=== PATIENT | female | born 2005 | race Caucasian/White ===

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

== ENCOUNTER 2023-03-13 12:54 | Outpatient (REF) | payer MEDICAID, SELFPAY ==
[2023-03-13 19:21] LABS: ALT 9 U/L (14-59); AST 13 U/L (15-37); Alkaline Phosphatase 48 U/L (46-116); Anion Gap 5.9 mmol/L (3-11); BUN 5 mg/dL (7-18); Bilirubin, Total 0.5 mg/dL (0.2-1.0); CO2 28.1 mmol/L (21.0-32.0); CREATININE 0.8 mg/dL (0.55-1.02); Calcium 9.4 mg/dL (8.5-10.1); Chloride 104 mmol/L (98-107); Estimated GFR 108.78 (mL/min/1.73m2); Glucose 99 mg/dL (74-106); Potassium 4.7 mmol/L (3.5-5.1); Sodium 138 mmol/L (136-145); Total Protein 7.4 g/dL (6.4-8.2)
== END 2023-03-13 12:55 | disposition home or self-care (01) ==
LOC: NCHCN 12:54
PROVIDERS: Visit Provider Nurse Practitioner Family
DX: Z13.1 Encounter for screening for diabetes mellitus (principal); Z00.00 Encounter for general adult medical examination without abnormal findings
CPT/HCPCS: 80053